=== PATIENT | male | born 1940 | race Caucasian/White ===

== ENCOUNTER → 2018-01-31 | Outpatient (CLI) | payer MEDICARE, BC ==
[2018-01-31 07:46] LABS: ALT 26 U/L (21-72); AST 18 U/L (17-59); Cholesterol 103 mg/dL (<200); HDL Cholesterol 48 mg/dL (40-60); LDL Cholesterol,Calculated 44 mg/dL (0-99); Triglycerides 56 mg/dL (<150)
== END | disposition home or self-care (01) ==
LOC: LABWHC1 06:50
PROVIDERS: ATTEND Nurse Practitioner Adult Health
DX: E78.2 Mixed hyperlipidemia (principal)
CPT/HCPCS: 36415; 80061; 84450; 84460

== ENCOUNTER → 2019-05-15 | Outpatient (CLI) | payer MEDICARE, BC ==
--- NOTE | 2019-05-16 04:30 | CT ---
EXAMINATION TYPE: CT lumbar spine wo con DATE OF EXAM: 05/15/2019 COMPARISON: None HISTORY: 78-year-old male Lower back and left leg pain TECHNIQUE: Contiguous axial scanning of the lumbar spine without IV contrast. Coronal and sagittal re constructions performed. CT DLP: 799.7 mGycm Automated exposure control for dose reduction was used. FINDINGS: 4 mm nonobstructive right lower pole renal calculus. Indeterminate exophytic lesion medial aspect of the right kidney measuring 1.7 cm. Further evaluation can be attempted with renal ultrasound. Mild atherosclerotic calcifications infrarenal abdominal aorta and iliac arteries. Degenerated levoconvex curvature of the lumbar spine. Severe disc/endplate degenerative change throughout the lumbar spine. Bilateral L5 pars defects with grade 1, nearly grade 2 anterolisthesis at L5-S1. Additional trace grade 1 retrolisthesis at T12-L1 and L1-L2. Degenerative thinning of the interspinous ligaments with abutment of the spinous processes in the low er lumbar spine. Hypertrophic facet arthropathy mid to lower lumbar spine. Vertebral body heights are preserved. At T11-T12, small posterior disc ossified complex with facet arthropathy. Changes result in mild-to-m oderate left neuroforaminal stenosis without spinal canal stenosis. At T12-L1, facet arthropathy with trace grade 1 retrolisthesis. No significant canal or foraminal jesús nosis. At L1-L2, there is grade 1 retrolisthesis with facet arthropathy. Minimal disc osteophyte complex is present. Changes result in moderate left neural foraminal stenosis without spinal canal stenosis. At L2-L3, bulging disc and some hypertrophic facet changes. Changes result in moderate bilateral neur al foraminal stenosis. At L3-L4, mild disc osteophyte complex and facet arthropathy. Changes result in moderate right and mi ld left neuroforaminal stenosis without spinal canal stenosis. At L4-L5, disc osteophyte complex with facet arthropathy. No spinal canal stenosis. Changes result in moderate right and mild left neural foraminal stenosis. L5-S1, grade 1, nearly grade 2 anterolisthesis with bilateral L5 pars defects. No spinal canal stenos is. Changes result in severe, left greater than right neural foraminal stenosis. IMPRESSION: 1. INDETERMINATE 1.7 CM EXOPHYTIC LESION MEDIAL ASPECT OF THE RIGHT KIDNEY MAY REPRESENT A COMPLICATE D CYST OR SOLID MASS. RENAL ULTRASOUND RECOMMENDED TO ATTEMPT FURTHER CHARACTERIZATION. 2. 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 3. 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 CHANGES RESULT IN SEVERE LEFT GREATER THAN RIGHT NEUROFORAMINAL STENOSIS AT THIS LEVEL. 4. OTHERWISE, VARIABLE MILD AND MODERATE NEURAL FORAMINAL STENOSES OUTLINED ABOVE.
== END | disposition home or self-care (01) ==
LOC: RADCTMAIN 13:29
PROVIDERS: ATTEND Internal Medicine
DX: M48.07 Spinal stenosis, lumbosacral region (principal); M43.17 Spondylolisthesis, lumbosacral region; M47.816 Spondylosis without myelopathy or radiculopathy, lumbar region; M41.86 Other forms of scoliosis, lumbar region
CPT/HCPCS: 72131

== ENCOUNTER → 2020-04-15 | Outpatient (CLI) | payer MEDICARE, BC ==
[2020-04-15 18:21] LABS: LDL Cholesterol,Calculated 38.8 mg/dL (0.0-131.0); VLDL Calculation 11.2 mg/dL (5.00-40.00)
== END | disposition home or self-care (01) ==
LOC: LABWHC1 08:02
PROVIDERS: ATTEND Internal Medicine Cardiovascular Disease
DX: E78.2 Mixed hyperlipidemia (principal)
CPT/HCPCS: 36415; 80061; 84450; 84460

== ENCOUNTER → 2020-05-16 | Outpatient (CLI) | payer MEDICARE, BC ==
--- NOTE | 2020-05-18 08:53 | MR ---
EXAMINATION TYPE: MR brain wo con DATE OF EXAM: 05/16/2020 COMPARISON: Prior MRI brain September 30, 2015. HISTORY: Left prominent tremor TECHNIQUE: Multiplanar, multisequence imaging of the brain and brainstem is performed without IV cont rast. FINDINGS: Exam slightly suboptimal as fast brain protocol had to be utilized due to patient motion. Diffusion weighted images demonstrate no evidence of a recent infarct or other diffusion abnormality. There is no worrisome new extra-axial fluid collection. Diffuse ventricular and sulcal prominence red emonstrated. Areas of T2 hyperintensity in the periventricular white matter again seen. 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 T2 coronal weighted images show hippocampal g yri are symmetric and felt within normal limits. 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 The craniocervical junction appears within normal limits. Normal vascular flow voids are present. 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 Air- fluid levels now present bilateral maxillary sinuses. IMPRESSION: 1. Persistent mild to moderate diffuse cerebral atrophy and chronic small vessel ischemic changes. No significant change from prior. 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 2. Possible new mild bilateral acute maxillary sinusitis. Correlate clinically.
== END | disposition home or self-care (01) ==
LOC: RADMRIMAIN 08:48
PROVIDERS: ATTEND Psychiatry & Neurology Neurology
DX: I67.82 Cerebral ischemia (principal); G31.9 Degenerative disease of nervous system, unspecified; G25.2 Other specified forms of tremor
CPT/HCPCS: 70551

== ENCOUNTER → 2021-06-23 | Outpatient (CLI) | payer MEDICARE, BC ==
[~2021-06-23] MED LIST: IODINE/POTASS IOD (LUGOLS) BOTTLE TOPICAL ONE
--- NOTE | 2021-06-24 09:09 | NM ---
EXAMINATION TYPE: NM DatScan Brain SPECT DATE OF EXAM: 06/23/2021 COMPARISON: NONE HISTORY: Tremors TECHNIQUE: 10 drops of Lugol's solution was administered 1 hour prior to injection as a thyroid bloc quoc agent. After the administration of 4.41 mCi I-123 Ioflupane DaTscan. Images obtained 3 hours p ost injection. SPECT images of the brain were acquired with axial and coronal reconstructions. FINDINGS: The axial SPECT images demonstrate increased background activity and reduced activity withi n the bilateral striata. 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
== END | disposition home or self-care (01) ==
LOC: RADNMMAIN 10:40
PROVIDERS: ATTEND Psychiatry & Neurology Vascular Neurology
DX: R94.02 Abnormal brain scan (principal)
CPT/HCPCS: 78803; A9584

== ENCOUNTER → 2021-08-12 | Outpatient (CLI) | payer MEDICARE, BC ==
[2021-08-12 15:58] LABS: ALT <5 U/L (10-49); AST 13 U/L (14-35)
[2021-08-13 03:31] LABS: Chol/HDL Ratio 1.68 Ratio
== END | disposition home or self-care (01) ==
LOC: LABWHC1 08:53
PROVIDERS: ATTEND Internal Medicine Cardiovascular Disease
DX: E78.2 Mixed hyperlipidemia (principal)
CPT/HCPCS: 36415; 80061; 83721; 84450; 84460

== ENCOUNTER → 2023-03-11 | Outpatient (CLI) | payer MEDICARE, BC | END | disposition home or self-care (01) | LOC: LABWHC1 15:26 | PROVIDERS: ATTEND Internal Medicine Cardiovascular Disease | DX: Z53.9 Procedure and treatment not carried out, unspecified reason (principal) ==

== ENCOUNTER → 2023-03-12 | Outpatient (CLI) | payer MEDICARE, BC ==
[2023-03-12 13:17] LABS: ALT 23 U/L (10-49); AST 24 U/L (14-35); Chol/HDL Ratio 1.67 Ratio; LDL Cholesterol,Calculated 35.4 mg/dL (0.0-131.0); VLDL Calculation 7.14 mg/dL (5.00-40.00)
== END | disposition home or self-care (01) ==
LOC: LABWHC1 08:49
PROVIDERS: ATTEND Internal Medicine Cardiovascular Disease
DX: E78.2 Mixed hyperlipidemia (principal)
CPT/HCPCS: 36415; 80061; 84450; 84460